=== PATIENT | female | born 1950 | race Caucasian/White ===

== ENCOUNTER 2019-01-31 19:23 | Emergency (ER) | payer MEDICARE, OTHER ==
[~2019-01-31] VITALS: Ht 165.1 cm; Wt 60.0 kg
[2019-01-31] MEDS ORDERED: ATOR1TAB21 PO (19:36)
[2019-01-31] MEDS ORDERED: SYNT100T PO (19:36)
[2019-01-31] MEDS ORDERED: LISI10TA4 PO (19:36)
[2019-01-31] MEDS ORDERED: CIPR500S PO (19:36)
[2019-01-31] MEDS ORDERED: MECL12.575 PO (19:36)
[2019-01-31] MEDS ORDERED: CIPRODEX OTIC (19:36)
[2019-01-31 21:56] LABS: BASO # 0.1 10^3/uL (0.0-0.2); BASO % 0.4 % (0.0-1.0); EOS # 0.1 10^3/uL (0.0-0.50); EOS % 0.8 % (0.0-3.0); HEMOGLOBIN 14.2 g/dl (12.0-15.5); LYMPH # 1.9 10^3/uL (1.5-4.5); LYMPH % 13.4 % (24.0-44.0); MEAN CORPUSCULAR HEMOGLOBIN 33.1 pg (27.0-33.0); MEAN CORPUSCULAR HGB CONC 36.4 g/dl (32.0-36.5); MEAN CORPUSCULAR VOLUME 90.9 fl (80.0-96.0); MONO # 1.1 10^3/uL (0.0-0.8); MONO % 7.5 % (0.0-5.0); NEUTROPHILS # 11.2 10^3/uL (1.8-7.7); NEUTROPHILS % 77.2 % (36.0-66.0); PLATELET COUNT, AUTOMATED 374 10^3/uL (150-450); RED BLOOD COUNT 4.29 10^6/uL (4.00-5.40); WHITE BLOOD COUNT 14.5 10^3/uL (4.0-10.0)
[2019-01-31 22:21] LABS: CALCIUM LEVEL 9.2 MG/DL (8.8-10.2); CREATININE FOR GFR 1.06 MG/DL (0.55-1.30); GLOMERULAR FILTRATION RATE 54.6 (>39); POTASSIUM SERUM 3.9 MEQ/L (3.5-5.1)
[2019-01-31] MEDS ORDERED: ISOVUE-370 76% 100ML VIAL (Q9967) As Ordered ONE (22:45)
--- NOTE | 2019-01-31 23:29 | REPVR ---
EXAM: CT Maxillofacial With Contrast EXAM DATE/TIME: 01/31/2019 11:01 PM CLINICAL HISTORY: 69 years old, female; Other: Lt ear pain; Additional info: L ear pain/swelling R/O abscess/mastoiditis TECHNIQUE: Imaging protocol: Computed tomography images of the face with intravenous contrast. Coronal and sagittal reformatted images were created and reviewed. Radiation optimization: All CT scans at this facility use at least one of these dose optimization techniques: automated exposure control; mA and/or kV adjustment per patient size (includes targeted exams where dose is matched to clinical indication); or iterative reconstruction. Contrast material: ISOVUE 370; Contrast volume: 75 ml; Contrast route: IV; COMPARISON: No relevant prior studies available. FINDINGS: Orbits: No acute intraorbital abnormality. Globes are unremarkable. Mastoid air cells: Fluid with air fluid levels in some left mastoid air cells. Sinuses: Normal. No air-fluid levels. Bones/joints: Degenerative changes of the upper cervical spine. Soft tissues: Unremarkable. IMPRESSION: 1. Fluid in some left mastoid air cells, particularly toward the tip which may reflect mild left mastoiditis. 2. Otherwise negative CT facial bones. Electronically signed by: Shahzad Guzmán On 01/31/2019 23:29:36 PM
[2019-02-01] MEDS ORDERED: predniSONE 20 MG TAB PO ONE
[2019-02-01] MEDS ORDERED: PIPERACILLIN/TAZOBACTAM SOD 4.5 GM in D5W MINI-BAG PLUS 50 ML IV ONE ×2
[2019-02-01] MEDS ORDERED: PRED20TA PO (00:02)
[2019-02-01 01:08] VITALS: BP 140/74
[2019-02-16] MEDS ORDERED: PREG100CA PO ×2 (10:38→10:51)
[2019-02-17] MEDS ORDERED: LYRI75CA PO ×2 (07:37→07:39)
== END 2019-02-01 01:11 | disposition home or self-care (01) ==
LOC: M ED 19:23
DX: H60.92 Unspecified otitis externa, left ear (principal); I10 Essential (primary) hypertension; E78.9 Disorder of lipoprotein metabolism, unspecified; E07.9 Disorder of thyroid, unspecified; Z88.2 Allergy status to sulfonamides; Z88.5 Allergy status to narcotic agent; Z79.899 Other long term (current) drug therapy
CPT/HCPCS: 70487; 80048; 85025; 87880; 96365; 99284; J2543; Q9967

== ENCOUNTER 2019-02-06 13:08 | Inpatient (IN) | payer MEDICARE, OTHER ==
[~2019-02-06] VITALS: Ht 165.1 cm; Wt 59.1 kg
[~2019-02-06 13:08] MED LIST: ATOR1TAB21 PO; CIPR500S PO; CIPRODEX OTIC; LISI10TA4 PO; MECL12.575 PO; PRED20TA PO; SYNT100T PO
[2019-02-06] MEDS ORDERED: DIAZ2TAB PO (13:17)
[2019-02-06 17:00] LABS: BASO # 0.1 10^3/uL (0.0-0.2); BASO % 0.7 % (0.0-1.0); EOS # 0.3 10^3/uL (0.0-0.50); EOS % 2.2 % (0.0-3.0); HEMATOCRIT 42.3 % (36.0-47.0); LYMPH # 1.7 10^3/uL (1.5-4.5); LYMPH % 14.6 % (24.0-44.0); MEAN CORPUSCULAR HEMOGLOBIN 32.1 pg (27.0-33.0); MEAN CORPUSCULAR HGB CONC 35.5 g/dl (32.0-36.5); MEAN CORPUSCULAR VOLUME 90.4 fl (80.0-96.0); MONO # 0.8 10^3/uL (0.0-0.8); MONO % 7.1 % (0.0-5.0); NEUTROPHILS # 8.7 10^3/uL (1.8-7.7); NEUTROPHILS % 74.5 % (36.0-66.0); PLATELET COUNT, AUTOMATED 402 10^3/uL (150-450); RED BLOOD COUNT 4.68 10^6/uL (4.00-5.40); WHITE BLOOD COUNT 11.6 10^3/uL (4.0-10.0)
[2019-02-06 17:23] LABS: ALBUMIN 3.8 GM/DL (3.2-5.2); BILIRUBIN,DIRECT 0.2 MG/DL (0.0-0.2); BILIRUBIN,TOTAL 0.7 MG/DL (0.2-1.0); CALCIUM LEVEL 9.6 MG/DL (8.8-10.2); CREATININE FOR GFR 1.07 MG/DL (0.55-1.30); INR 0.97; POTASSIUM SERUM 3.9 MEQ/L (3.5-5.1); PROTHROMBIN TIME 12.6 SECONDS (11.8-14.0); THYROID STIMULATING HORMONE 2.19 uIU/ML (0.358-3.740); TOTAL PROTEIN 7.5 GM/DL (6.4-8.2)
--- NOTE | 2019-02-06 18:22 | REPVR ---
EXAM: MR Head Without Contrast EXAM DATE/TIME: 02/06/2019 4:20 PM CLINICAL HISTORY: 69 years old, female; Weakness, facial; Additional info: L sided facial droop; L ear vesicles; Yaw griffin vs stroke TECHNIQUE: Imaging protocol: MR of the head without contrast. COMPARISON: No relevant prior studies available. FINDINGS: Brain: No acute infarct identified on the diffusion weighted imaging. No parenchymal hemorrhage. No evidence of brain parenchymal edema or intracranial mass effect. No significant white matter disease for the patient's age. Ventricles: Unremarkable. No ventriculomegaly. Bones/joints: Unremarkable. Soft tissues: Normal. Sinuses: Trace ethmoid mucosal thickening. No acute sinusitis. Mastoid air cells: Nonspecific bilateral mastoid effusions, moderate on the left and trace on the right. Internal auditory canals: Nonspecific left middle ear cavity fluid. Orbits: Unremarkable. IMPRESSION: 1. No evidence of acute infarct. 2. Nonspecific left middle ear cavity and mastoid fluid, may reflect eustachian tube dysfunction versus otitis media/mastoiditis. Electronically signed by: Dominga Parker On 02/06/2019 18:22:07 PM
[2019-02-06] MEDS ORDERED: diazePAM 2 MG TAB PO ONE (19:00)
[2019-02-06] MEDS ORDERED: NS 500 ML IV ONE (20:00)
[2019-02-06] MEDS ORDERED: IBUP80TA PO (20:56)
--- NOTE | 2019-02-06 22:49 | HPEPDOC ---
General Date of Admission 02/06/19 Date of Service: Feb 06, 2019 Chief Complaint The patient is a 69-year-old female admitted with a reason for visit of Cranial Pain. Source: Patient, Family History of Present Illness This is a 69 female with pmhx of htn and acquired hypothyroidism and a recent severe left ear infection treated at [facility] who presented today t o the ED for left sided facial droop since Wednesday. Patient said since the hospitalization 3 weeks ago, even though her ear infection got better, she felt like she has not gotten completely better because she always had throat pain and difficulty swallowing which seems to have gotten worse. She had a pimple/vesicle in her ear at the time of the infection which was culture for bacteria and herpes but came back negative. She saw a ENT specialist on Wednesday who examined her throat and ears and said she was ok and on gave her abx ear drops. She was given prednisone, but only took one dose because she said the ENT stopped it. She complain currently of left ear and face sharp pain 8/10, with difficulty swallowing, sore throat. She denied fever, nausea, chest pain opr sob. but complain of chills when the pain increases. ROS - all 14 point review of system is negative except for whats listed in HPI Pmhx acquired hypothyrodism htn ?hld - not on meds tick bite in the past, s/p abx treatment but was not dx with lyme disease surgical - c section x3 social - denied hx of smoking , drinking or drug use family hx - non-contributory allergies - see above meds - see below Physical exam Gen: NAD, healthy appearing , HEENT: normocephalic, atraumatic, dried blood in left ear, limited exam due to pain, no discharge from ears or nose, tender lymphadenopathy in the left sublingual region, no oropharyngeal erythema or exudate, no rash or vesicles in ear, face or oropharynx, neck is supple, CVS: RRR, normal S1n S2, no murmur, rubs, or gallops, no edema, no jvd Resp: LCTAB, no rhonchi, wheezes or crackles Abd : soft nontender, normal bowel sounds, no rebound tenderness or guarding MSK: no swelling, full range of motion, strength 5/5 Neuro: AOAx3, no confusion, facial nerve palsy obvious at rest - left sided ptosis, with tearing unable to completely close eye, left sided forehead - no movement , mouth asymmetry, tenderness on the left side of face Psych: normal mood and affect, good judgment Assessment and plan 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 started prednisone 60mg po daily - should be for 7 days - day 1 started valcyclovir 1000mg TID for 7 days,- day 1 prn pain meds eye patch for left eye gi ppx - protonix f/u esr, crp and lactic acid level f/u lyme w/u htn c/w ome meds HYpothyrodism - c/w home meds dvt ppx gi ppx full code, from home Home Medications Scheduled Levothyroxine Sodium (Synthroid) 100 Mcg Tablet, 100 MCG PO DAILY, (Reported) Lisinopril (Lisinopril) 10 Mg Tablet, 10 MG PO DAILY, (Reported) Scheduled PRN Diazepam (Diazepam) 2 Mg Tablet, 4 MG PO BID PRN for ANXIETY, (Reported) Ibuprofen (Ibuprofen) 800 Mg Tablet, 800 MG PO TID PRN for PAIN, (Reported) Allergies Coded Allergies: Sulfa (Sulfonamide Antibiotics) (Verified Allergy, Severe, 01/31/19) codeine (Verified Allergy, Severe, 01/31/19) A-FIB/CHADSVASC A-FIB History Current/History of A-Fib/PAF?: No Age/Risk Factor Scoring CHADSVASC: CHADSVASC Response (Comments) Value Age Risk Factor Age 65-74 years old 1 Gender Risk Factor Female 1 Hx of CHF No 0 Hx of HTN No 0 Hx of Stroke/TIA/or VTE No 0 Hx of Diabetes No 0 Hx of Vascular Disease No 0 Total 2 Treatment Treatment ordered: NONE Reason Anticoagulant not given: Not indicated/[id number] Vital Signs Vital Signs Date Time Temp Pulse Resp B/P (MAP) Pulse Ox O2 Delivery O2 Flow Rate FiO2 02/06/19 18:49 97.8 72 16 142/73 (96) 97 Room Air Laboratory Data Labs 24H Laboratory Tests 2 02/06/19 16:21: Immature Granulocyte % (Auto) 0.9, White Blood Count 11.6H, Red Blood Count 4.68, Hemoglobin 15.0, Hematocrit 42.3, Mean Corpuscular Volume 90.4, Mean Corpuscular Hemoglobin 32.1, Mean Corpuscular Hemoglobin Concent 35.5, Red Cell Distribution Width 12.6, Platelet Count 402, Neutrophils (%) (Auto) 74.5H, Lymphocytes (%) (Auto) 14.6L, Monocytes (%) (Auto) 7.1H, Eosinophils (%) (Auto) 2.2, Basophils (%) (Auto) 0.7, Neutrophils # (Auto) 8.7H, Lymphocytes # (Auto) 1.7, Monocytes # (Auto) 0.8, Eosinophils # (Auto) 0.3, Basophils # (Auto) 0.1, Nucleated Red Blood Cells % (auto) 0.0, Prothrombin Time 12.6, Prothromb Time International Ratio 0.97, Activated Partial Thromboplast Time 29.0, Anion Gap 7L, Glomerular Filtration Rate 54.0, Calcium Level 9.6, Aspartate Amino Transf (AST/SGOT) 17, Alanine Aminotransferase (ALT/SGPT) 17, Alkaline Phosphatase 74, Total Bilirubin 0.7, Direct Bilirubin 0.2, Total Protein 7.5, Albumin 3.8, Albumin/Globulin Ratio 1.03, Thyroid Stimulating Hormone (TSH) 2.190 CBC/BMP Laboratory Tests 02/06/19 16:21 Red Blood Count 4.68, Mean Corpuscular Volume 90.4, Mean Corpuscular Hemoglobin 32.1, Mean Corpuscular Hemoglobin Concent 35.5, Red Cell Distribution Width 12.6, Neutrophils (%) (Auto) 74.5 H, Lymphocytes (%) (Auto) 14.6 L, Monocytes (%) (Auto) 7.1 H, Eosinophils (%) (Auto) 2.2, Basophils (%) (Auto) 0.7, Neutrophils # (Auto) 8.7 H, Lymphocytes # (Auto) 1.7, Monocytes # (Auto) 0.8, Eosinophils # (Auto) 0.3, Basophils # (Auto) 0.1 Plan / VTE VTE Prophylaxis Ordered?: Yes SHONNA HERNANDEZ MD Feb 06, 2019 22:49
[2019-02-06] MEDS: valACYclovir HCL 500 MG TAB PO SCH (23:16)
[2019-02-06] MEDS: predniSONE 20 MG TAB PO SCH (23:16)
[2019-02-06] MEDS: KETOROLAC 30 MG/ML VIAL (J1885) IV PRN (23:21)
[2019-02-06] MEDS: ACETAMINOPHEN TAB 650MG DOSE (2X325MG) PO PRN (23:21)
[2019-02-06 23:58] LABS: C REACTIVE PROTEIN QUANTITATIV 0.35 MG/DL (0.00-0.30)
[2019-02-07 00:15] LABS: ERYTHROCYTE SEDIMENTATION RATE 16 mm/hr (0-30)
[2019-02-07] MEDS: PIPERACILLIN/TAZOBACTAM SOD 3.375 GM in D5W MINI-BAG PLUS 50 ML IV SCH ×4 (04:00→22:03)
[2019-02-07] MEDS: LEVOTHYROXINE 100MCG TABLET (0.1MG) PO SCH (05:06)
[2019-02-07] MEDS: KETOROLAC 30 MG/ML VIAL (J1885) IV PRN (05:36)
[2019-02-07] MEDS: HEPARIN SOD (PORCINE) 5000 UNITS/ML VIAL SC SCH ×3 (05:54→20:59)
[2019-02-07 06:40] LABS: HEMATOCRIT 38.7 % (36.0-47.0); HEMOGLOBIN 13.9 g/dl (12.0-15.5); MEAN CORPUSCULAR HEMOGLOBIN 32.2 pg (27.0-33.0); MEAN CORPUSCULAR HGB CONC 35.9 g/dl (32.0-36.5); MEAN CORPUSCULAR VOLUME 89.6 fl (80.0-96.0); PLATELET COUNT, AUTOMATED 336 10^3/uL (150-450); RED BLOOD COUNT 4.32 10^6/uL (4.00-5.40); WHITE BLOOD COUNT 8.5 10^3/uL (4.0-10.0)
[2019-02-07 07:05] LABS: BLOOD UREA NITROGEN 16 MG/DL (7-18); CARBON DIOXIDE LEVEL 27 MEQ/L (21-32); CHLORIDE LEVEL 97 MEQ/L (98-107); CREATININE FOR GFR 0.72 MG/DL (0.55-1.30); GLOMERULAR FILTRATION RATE > 60.0 (>39); GLUCOSE, FASTING 158 MG/DL (70-100); POTASSIUM SERUM 3.7 MEQ/L (3.5-5.1); SODIUM LEVEL 132 MEQ/L (136-145)
[2019-02-07] MEDS ORDERED: DOCUSATE SODIUM 100 MG CAP PO SCH (09:00)
[2019-02-07] MEDS: valACYclovir HCL 500 MG TAB PO SCH ×3 (09:14→20:59)
[2019-02-07] MEDS: LISINOPRIL 10 MG TAB PO SCH (09:14)
[2019-02-07] MEDS: PANTOPRAZOLE 40MG TAB (PROTONIX) PO SCH (09:14)
[2019-02-07] MEDS: predniSONE 20 MG TAB PO SCH (09:14)
[2019-02-07 13:02] VITALS: BP 112/62
[2019-02-07] MEDS: IBUPROFEN 800 MG TAB PO PRN ×2 (13:17→22:08)
[2019-02-07] MEDS: ACETAMINOPHEN TAB 650MG DOSE (2X325MG) PO PRN ×2 (14:10→20:58)
[2019-02-07 14:35] VITALS: BP 135/74
[2019-02-07] MEDS ORDERED: BISACODYL 10 MG SUPP PR ONE (15:45)
[2019-02-07] MEDS: KETOROLAC TROMETHAMINE 10 MG TAB PO PRN (18:00)
--- NOTE | 2019-02-07 19:54 | IPNPDOC ---
Text Note Date of Service The patient was seen on 02/07/19. NOTE Subjective: Patient endorses continued left sided facial discomfort, facial droop and ear pain. She denies any fevers/chills/headaches, vision changes, chest pain, palpitations, abd pain, vomiting, diarrhea, no focal weakness, no numbness/tingling. She notes constipation over the past 5 days. 10 Point ROS negative except listed here. Objective Vital signs: see below GEN: NAD, healthy female HEENT: left eye patch, left sided facial droop involving forehead, unable for raise eye brow. Left ear painful to touch, external canal erythematous, no vesicles noted, no rash or exudates. Cardio: S1/s2 present, RRR Lungs: CTA b/l, good air entry, no wheezing Abd: soft, nt, nd, bs present, no guarding Ext: no focal weakness, pulses palpable throughout MSK good strength throughout Neuro: A&Ox3, left sided facial palsy with ptosis, mouth and forehead involvement. Psych: Normal mood and affect MRI Brain 02/06: 1. No evidence of acute infarct. 2. Nonspecific left middle ear cavity and mastoid fluid, may reflect eustachian tube dysfunction versus otitis media/mastoiditis. 69 y/o F with HTN, acquired hypothyroidism with recent hospitalizations and antibiotic use for left ear infections at [facility] admitted with likely bells palsy- possibly bob cherry syndrome [place] Palsy r/o Bob Cherry syndrome -continue Prednisone 60mg daily -continue acyclovir 1g TID x7 days -pain medications -Called ENT and discussed with Dr. Patel who can see patient in his clinic to at 8 AM. [employer] can arrange transport. Patient has been following with Dr. Hyde as an outpatient. -left eye patch -supportive care Constipation -Bisacoydl suppository x1 then senna/colace HTN: Lisinopril 10 Hypothyroidism: synthroid 100 Dvt ppx PT eval Vital Signs Date Time Temp Pulse Resp B/P (MAP) Pulse Ox O2 Delivery O2 Flow Rate FiO2 02/07/19 14:35 97.2 85 20 135/74 (94) 95 02/07/19 13:02 97.5 84 16 112/62 (79) 94 02/07/19 09:31 124/60 (81) 02/07/19 09:31 124/60 (81) 02/07/19 09:30 85 98 02/07/19 09:30 85 18 98 Room Air 02/07/19 09:15 92 141/64 (89) 97 02/07/19 09:15 92 141/64 (89) 97 02/07/19 09:14 145/72 02/07/19 09:01 119/57 (77) 02/07/19 09:01 119/57 (77) 02/07/19 09:00 88 97 02/07/19 09:00 88 97 02/07/19 08:46 138/65 (89) 02/07/19 08:46 138/65 (89) 02/07/19 08:45 85 99 02/07/19 08:45 85 99 02/07/19 08:30 82 157/73 (101) 98 02/07/19 08:30 82 157/73 (101) 98 02/07/19 08:15 85 18 145/72 (96) 96 Room Air 02/07/19 08:00 76 18 133/69 (90) 95 Room Air 02/07/19 07:45 80 16 137/67 (90) 96 Room Air 02/07/19 07:30 81 16 135/76 (95) 96 Room Air 02/07/19 07:15 81 145/84 (104) 96 02/07/19 07:00 81 16 138/83 (101) 96 02/07/19 06:45 76 16 127/69 (88) 96 02/07/19 06:31 135/74 (94) 02/07/19 06:30 83 16 95 02/07/19 06:15 80 137/67 (90) 97 02/07/19 06:00 79 16 153/66 (95) 96 02/07/19 05:45 79 146/76 (99) 95 02/07/19 05:30 80 143/81 (101) 95 02/07/19 05:21 140/75 (96) 02/07/19 05:00 76 138/77 (97) 97 02/07/19 04:45 78 138/70 (92) 95 02/07/19 04:31 143/70 (94) 02/07/19 04:30 83 94 02/07/19 04:15 78 119/65 (83) 94 02/07/19 04:00 79 118/72 (87) 94 02/07/19 03:45 80 115/65 (82) 95 02/07/19 03:30 80 115/59 (77) 93 02/07/19 03:15 79 121/65 (83) 92 02/07/19 03:00 78 114/68 (83) 96 02/07/19 02:45 79 123/67 (85) 98 02/07/19 02:30 136/74 (94) 02/07/19 02:23 76 16 95 02/07/19 02:16 149/80 (103) 02/07/19 02:08 80 95 02/07/19 02:00 129/64 (85) 02/07/19 01:53 80 93 02/07/19 01:45 128/61 (83) 02/07/19 01:38 77 02/07/19 01:23 77 02/07/19 01:08 80 02/07/19 00:53 80 16 02/07/19 00:38 80 02/06/19 23:49 96.7 72 18 140/72 (94) 96 Room Air Intake & Output 02/07/19 06:00 Intake Total 500 ml Balance 500 ml Laboratory Tests 02/07/19 06:29: White Blood Count 8.5, Red Blood Count 4.32, Hemoglobin 13.9, Hematocrit 38.7, Mean Corpuscular Volume 89.6, Mean Corpuscular Hemoglobin 32.2, Mean Corpuscular Hemoglobin Concent 35.9, Red Cell Distribution Width 12.3, Platelet Count 336, Nucleated Red Blood Cells % (auto) 0.0, Blood Urea Nitrogen 16, Creatinine 0.72, Sodium Level 132L, Potassium Level 3.7, Chloride Level 97L, Carbon Dioxide Level 27, Calcium Level 9.0, Anion Gap 8, Glomerular Filtration Rate > 60.0, Fasting Glucose 158H, Lactic Acid Level 0.7, Magnesium Level 2.0, Procalcitonin 0.02, Lyme Disease IgG/IgM Antibodies [Pending] Current Medications Medications (Trade) Dose Ordered Sig/Satnam Route PRN Reason Start Time Stop Time Status Last Admin Dose Admin Acetaminophen (Tylenol Tab) 650 mg Q4H PRN PO PAIN OR FEVER 02/06/19 22:15 02/07/19 14:10 650 MG Docusate Sodium (Colace) 100 mg BID PO 02/07/19 09:00 02/07/19 09:14 100 MG Heparin Sodium (Porcine) (Heparin) 5,000 units Q8H SC 02/07/19 06:00 02/07/19 13:17 5,000 UNITS Ibuprofen (Advil) 800 mg TID PRN PO PAIN 02/07/19 00:45 02/07/19 13:17 800 MG Ketorolac Tromethamine (ToRADol) 10 mg Q6HP PRN PO PAIN 02/07/19 17:15 02/08/19 12:00 02/07/19 18:00 10 MG Levothyroxine Sodium (Synthroid) 100 mcg DAILY@0600 PO 02/07/19 06:00 02/07/19 05:06 100 MCG Lisinopril (Prinivil) 10 mg DAILY PO 02/07/19 09:00 02/07/19 09:14 10 MG Pantoprazole Sodium (Protonix) 40 mg DAILY PO 02/07/19 09:00 02/07/19 09:14 40 MG Piperacillin Sod/ Tazobactam Sod 3.375 gm/Dextrose 50 ml @ 50 mls/hr Q6H IV 02/07/19 04:00 02/07/19 15:18 50 MLS/HR Prednisone (Deltasone) 60 mg DAILY PO 02/06/19 22:30 02/07/19 09:14 60 MG Valacyclovir HCl (Valtrex) 1,000 mg TID PO 02/06/19 22:30 02/07/19 15:18 1,000 MG VS,Fishbone, I+O VS, Fishbone, I+O Laboratory Tests 02/07/19 06:29 Red Blood Count 4.32, Mean Corpuscular Volume 89.6, Mean Corpuscular Hemoglobin 32.2, Mean Corpuscular Hemoglobin Concent 35.9, Red Cell Distribution Width 12.3, Calcium Level 9.0 Vital Signs Date Time Temp Pulse Resp B/P (MAP) Pulse Ox O2 Delivery O2 Flow Rate FiO2 02/07/19 14:35 97.2 85 20 135/74 (94) 95 02/07/19 09:30 Room Air I&O- Last 24 Hours up to 6 AM 02/07/19 06:00 Intake Total 500 ml Balance 500 ml GE GOMEZ MD Feb 07, 2019 19:54
[2019-02-07] MEDS: SENNA 8.6 MG TAB (SENOKOT) PO SCH (20:57)
[2019-02-07] MEDS: DOCUSATE SODIUM 100 MG CAP PO SCH (20:57)
[2019-02-07 22:00] VITALS: BP 133/82
[2019-02-08] MEDS: KETOROLAC 30 MG/ML VIAL (J1885) IV PRN ×2 (01:30→19:51)
[2019-02-08] MEDS: PIPERACILLIN/TAZOBACTAM SOD 3.375 GM in D5W MINI-BAG PLUS 50 ML IV SCH ×4 (03:58→22:47)
[2019-02-08] MEDS: LEVOTHYROXINE 100MCG TABLET (0.1MG) PO SCH (05:53)
[2019-02-08] MEDS: HEPARIN SOD (PORCINE) 5000 UNITS/ML VIAL SC SCH ×3 (05:54→20:59)
[2019-02-08 06:00] VITALS: BP 128/74
[2019-02-08 06:17] LABS: HEMATOCRIT 34.3 % (36.0-47.0); HEMOGLOBIN 12.4 g/dl (12.0-15.5); MEAN CORPUSCULAR HEMOGLOBIN 32.2 pg (27.0-33.0); MEAN CORPUSCULAR HGB CONC 36.2 g/dl (32.0-36.5); MEAN CORPUSCULAR VOLUME 89.1 fl (80.0-96.0); PLATELET COUNT, AUTOMATED 333 10^3/uL (150-450); RED BLOOD COUNT 3.85 10^6/uL (4.00-5.40); WHITE BLOOD COUNT 17.8 10^3/uL (4.0-10.0)
[2019-02-08 06:27] LABS: BLOOD UREA NITROGEN 18 MG/DL (7-18); CALCIUM LEVEL 8.8 MG/DL (8.8-10.2); CARBON DIOXIDE LEVEL 28 MEQ/L (21-32); CHLORIDE LEVEL 94 MEQ/L (98-107); CREATININE FOR GFR 0.86 MG/DL (0.55-1.30); GLOMERULAR FILTRATION RATE > 60.0 (>39); GLUCOSE, FASTING 92 MG/DL (70-100); POTASSIUM SERUM 3.6 MEQ/L (3.5-5.1); SODIUM LEVEL 129 MEQ/L (136-145)
[2019-02-08] MEDS: predniSONE 20 MG TAB PO SCH (07:57)
[2019-02-08] MEDS: valACYclovir HCL 500 MG TAB PO SCH ×3 (07:58→21:00)
[2019-02-08] MEDS: PANTOPRAZOLE 40MG TAB (PROTONIX) PO SCH (07:58)
[2019-02-08] MEDS: DOCUSATE SODIUM 100 MG CAP PO SCH ×3 (07:58→21:01)
[2019-02-08] MEDS: LISINOPRIL 10 MG TAB PO SCH (07:58)
[2019-02-08] MEDS: KETOROLAC TROMETHAMINE 10 MG TAB PO PRN (08:00)
[2019-02-08] MEDS: POLYVINYL ALCOHOL OPHTH SOLN 15 ML(LIQUITEARS) OS PRN ×5 (11:24→22:47)
[2019-02-08] MEDS: ACETAMINOPHEN TAB 650MG DOSE (2X325MG) PO PRN ×3 (12:34→22:46)
[2019-02-08 14:00] VITALS: BP 135/78
[2019-02-08] MEDS: IBUPROFEN 800 MG TAB PO PRN (14:27)
--- NOTE | 2019-02-08 19:22 | IPNPDOC ---
Date Seen The patient was seen on 02/08/19. Progress Note Subjective: This is a 69 female admitted for left ear infection and rodriguez's palsy . Today patient is feelign somewhat better, but still complains of intermittent left facial//ear pain. Her throat pain is improved, but she can still only tolerate liquid diet . Objective Vital signs are stable labs Physical exam Gen: NAD, healthy appearing , HEENT: normocephalic, atraumatic, no discharge from ears or nose, tender lymphadenopathy in the left sublingual region, no oropharyngeal erythema or exudate, no rash or vesicles in ear, face or oropharynx, neck is supple, CVS: RRR, normal S1n S2, no murmur, rubs, or gallops, no edema, no jvd Resp: LCTAB, no rhonchi, wheezes or crackles Abd : soft nontender, normal bowel sounds, no rebound tenderness or guarding MSK: no swelling, full range of motion, strength 5/5 Neuro: AOAx3, no confusion, facial nerve palsy obvious at rest - left sided ptosis, with tearing unable to completely close eye, left sided forehead - no movement , mouth asymmetry, tenderness on the left side of face - all signs are slightly improved compared to sxs on admission Psych: normal mood and affect, good judgment Assessment and plan 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 c/w prednisone 60mg po daily - should be for 7 days - day 3 c/w valcyclovir 1000mg TID for 7 days,- day 3 prn pain meds eye patch for left eye seen by ENT today who examined her and rec to continue with current treatment gi ppx - protonix f/u esr, crp and lactic acid level f/u lyme w/u started gabapentin 200mg q8h for neuropathic pain artificial tears for dry left eye Otitis media//mastoiditis c/w zosyn day 3 for 7 days htn c/w ome meds HYpothyrodism - c/w home meds dvt ppx gi ppx full code, from home disposition- dc when pain is better controlled VS, I&O, 24H, Fishbone Vital Signs/I&O Vital Signs Date Time Temp Pulse Resp B/P (MAP) Pulse Ox O2 Delivery O2 Flow Rate FiO2 02/08/19 14:00 98.1 70 15 135/78 (97) 95 02/07/19 09:30 Room Air I&O- Last 24 Hours up to 6 AM 02/08/19 06:00 Intake Total 800 ml Output Total 850 ml Balance -50 ml Laboratory Data 24H LABS Laboratory Tests 2 02/08/19 05:17: Nucleated Red Blood Cells % (auto) 0.0, Anion Gap 7L, Glomerular Filtration Rate > 60.0, Blood Urea Nitrogen 18, Creatinine 0.86, Sodium Level 129L, Potassium Level 3.6, Chloride Level 94L, Carbon Dioxide Level 28, Calcium Level 8.8 CBC/BMP Laboratory Tests 02/08/19 05:17 Red Blood Count 3.85 L, Mean Corpuscular Volume 89.1, Mean Corpuscular Hemoglobin 32.2, Mean Corpuscular Hemoglobin Concent 36.2, Red Cell Distribution Width 12.1, Calcium Level 8.8 SHONNA HERNANDEZ MD Feb 08, 2019 19:22
[2019-02-08] MEDS: GABAPENTIN 100 MG CAP PO SCH (21:00)
[2019-02-08] MEDS: SENNA 8.6 MG TAB (SENOKOT) PO SCH (21:00)
[2019-02-08 22:00] VITALS: BP 130/76
[2019-02-09 00:07] LABS: Lyme Disease IgG/IgM Antibodie <0.91 ISR (0.00-0.90); Lyme Disease IgM Ab Quantitati <0.80 index (0.00-0.79)
[2019-02-09] MEDS: ACETAMINOPHEN TAB 650MG DOSE (2X325MG) PO PRN ×2 (04:16→14:42)
[2019-02-09] MEDS: PIPERACILLIN/TAZOBACTAM SOD 3.375 GM in D5W MINI-BAG PLUS 50 ML IV SCH ×4 (04:23→21:22)
[2019-02-09 05:38] LABS: HEMATOCRIT 33.7 % (36.0-47.0); MEAN CORPUSCULAR HGB CONC 35.6 g/dl (32.0-36.5); MEAN CORPUSCULAR VOLUME 89.9 fl (80.0-96.0); PLATELET COUNT, AUTOMATED 284 10^3/uL (150-450); RED BLOOD COUNT 3.75 10^6/uL (4.00-5.40); WHITE BLOOD COUNT 9.6 10^3/uL (4.0-10.0)
[2019-02-09 06:00] VITALS: BP 127/74
[2019-02-09 06:00] LABS: BLOOD UREA NITROGEN 14 MG/DL (7-18); C REACTIVE PROTEIN QUANTITATIV < 0.30 MG/DL (0.00-0.30); CALCIUM LEVEL 8.8 MG/DL (8.8-10.2); CARBON DIOXIDE LEVEL 29 MEQ/L (21-32); CHLORIDE LEVEL 98 MEQ/L (98-107); GLOMERULAR FILTRATION RATE > 60.0 (>39); GLUCOSE, FASTING 96 MG/DL (70-100); POTASSIUM SERUM 3.5 MEQ/L (3.5-5.1); SODIUM LEVEL 134 MEQ/L (136-145)
[2019-02-09] MEDS: HEPARIN SOD (PORCINE) 5000 UNITS/ML VIAL SC SCH ×3 (06:20→21:23)
[2019-02-09] MEDS: LEVOTHYROXINE 100MCG TABLET (0.1MG) PO SCH (06:20)
[2019-02-09] MEDS: GABAPENTIN 100 MG CAP PO SCH (06:20)
[2019-02-09 09:46] LABS: ERYTHROCYTE SEDIMENTATION RATE 14 mm/hr (0-30)
[2019-02-09] MEDS: valACYclovir HCL 500 MG TAB PO SCH ×3 (10:02→21:22)
[2019-02-09] MEDS: predniSONE 20 MG TAB PO SCH (10:03)
[2019-02-09] MEDS: PANTOPRAZOLE 40MG TAB (PROTONIX) PO SCH (10:03)
[2019-02-09] MEDS: DOCUSATE SODIUM 100 MG CAP PO SCH ×3 (10:03→21:23)
[2019-02-09] MEDS: LISINOPRIL 10 MG TAB PO SCH (10:04)
[2019-02-09] MEDS: IBUPROFEN 800 MG TAB PO PRN ×2 (10:04→18:08)
[2019-02-09] MEDS: POLYVINYL ALCOHOL OPHTH SOLN 15 ML(LIQUITEARS) OS PRN ×2 (10:24→21:24)
[2019-02-09 14:00] VITALS: BP 148/86
[2019-02-09] MEDS: GABAPENTIN 400 MG CAP PO SCH ×2 (14:41→21:22)
[2019-02-09 20:00] VITALS: BP 119/78
[2019-02-09] MEDS: SENNA 8.6 MG TAB (SENOKOT) PO SCH (21:23)
[2019-02-10] MEDS: PIPERACILLIN/TAZOBACTAM SOD 3.375 GM in D5W MINI-BAG PLUS 50 ML IV SCH ×4 (03:31→21:31)
[2019-02-10] MEDS: IBUPROFEN 800 MG TAB PO PRN ×2 (03:32→12:24)
[2019-02-10] MEDS: POLYVINYL ALCOHOL OPHTH SOLN 15 ML(LIQUITEARS) OS PRN ×4 (03:32→21:40)
[2019-02-10] MEDS: GABAPENTIN 400 MG CAP PO SCH ×3 (05:52→21:31)
[2019-02-10] MEDS: LEVOTHYROXINE 100MCG TABLET (0.1MG) PO SCH (05:52)
[2019-02-10] MEDS: HEPARIN SOD (PORCINE) 5000 UNITS/ML VIAL SC SCH ×3 (05:53→21:30)
[2019-02-10 05:54] LABS: HEMATOCRIT 35.7 % (36.0-47.0); HEMOGLOBIN 12.6 g/dl (12.0-15.5); MEAN CORPUSCULAR HEMOGLOBIN 32.8 pg (27.0-33.0); MEAN CORPUSCULAR HGB CONC 35.3 g/dl (32.0-36.5); PLATELET COUNT, AUTOMATED 278 10^3/uL (150-450); RED BLOOD COUNT 3.84 10^6/uL (4.00-5.40); WHITE BLOOD COUNT 10.4 10^3/uL (4.0-10.0)
[2019-02-10 06:00] VITALS: BP 122/78
[2019-02-10 06:16] LABS: BLOOD UREA NITROGEN 17 MG/DL (7-18); CALCIUM LEVEL 9.4 MG/DL (8.8-10.2); CARBON DIOXIDE LEVEL 28 MEQ/L (21-32); CHLORIDE LEVEL 98 MEQ/L (98-107); CREATININE FOR GFR 0.74 MG/DL (0.55-1.30); GLOMERULAR FILTRATION RATE > 60.0 (>39); GLUCOSE, FASTING 82 MG/DL (70-100); POTASSIUM SERUM 3.6 MEQ/L (3.5-5.1); SODIUM LEVEL 133 MEQ/L (136-145)
[2019-02-10] MEDS: valACYclovir HCL 500 MG TAB PO SCH ×3 (09:35→21:31)
[2019-02-10] MEDS: PANTOPRAZOLE 40MG TAB (PROTONIX) PO SCH (09:35)
[2019-02-10] MEDS: predniSONE 20 MG TAB PO SCH (09:35)
[2019-02-10] MEDS: DOCUSATE SODIUM 100 MG CAP PO SCH ×3 (09:35→21:31)
[2019-02-10] MEDS: ACETAMINOPHEN TAB 650MG DOSE (2X325MG) PO PRN ×3 (09:37→21:34)
[2019-02-10] MEDS: LISINOPRIL 10 MG TAB PO SCH (09:39)
[2019-02-10] MEDS ORDERED: PILL CUTTER 1 EACH XX PRN (09:45)
[2019-02-10] MEDS: LIDOCAINE 5% OINT 30 GM TOP PRN ×2 (13:39→23:08)
[2019-02-10 14:00] VITALS: BP 120/65
[2019-02-10] MEDS: LIDOCAINE VISCOUS 2% SOLN 15ML UDC SS PRN (16:34)
--- NOTE | 2019-02-10 18:07 | IPNPDOC ---
Date Seen The patient was seen on 02/09/19. Progress Note Subjective: This is a 69 female admitted for left ear infection and rodriguez's palsy . Today patient is complaining of left sided burning and stabbing scalp and forehead pain improved with her warm hands on it . prn meds help a bit but not doesn't last long enough Objective Vital signs are stable labs reviewed Physical exam Gen: NAD, healthy appearing , hypopactive due to pain, always in the same position and doesn't move her head, said it hurts more with movement HEENT: normocephalic, atraumatic, no discharge from ears or nose, tender lymphadenopathy in the left sublingual region, no oropharyngeal erythema or exudate, no obvious rash on scalp or face CVS: RRR, normal S1n S2, no murmur, rubs, or gallops, no edema, no jvd Resp: LCTAB, no rhonchi, wheezes or crackles Abd : soft nontender, normal bowel sounds, no rebound tenderness or guarding MSK: no swelling, full range of motion, strength 5/5 Neuro: AOAx3, no confusion, facial nerve palsy -improving, swelling and erythema of the left side is also improving, wearing an eye patch on the left Psych: normal mood and affect, good judgment Assessment and plan 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 - improving c/w prednisone 60mg po daily - should be for 7 days - day 4 c/w valcyclovir 1000mg TID for 7 days,- day 4 prn pain meds eye patch for left eye s/p ENT- rec to continue with current treatment gi ppx - protonix lyme w/u negative inreased gabapentin to 400mg q8h for neuropathic pain artificial tears for dry left eye Otitis media//mastoiditis c/w zosyn day 4 for 7 days htn c/w home meds HYpothyrodism - c/w home meds dvt ppx gi ppx full code, from home disposition- dc when pain is better controlled VS, I&O, 24H, Fishbone Vital Signs/I&O Vital Signs Date Time Temp Pulse Resp B/P (MAP) Pulse Ox O2 Delivery O2 Flow Rate FiO2 02/09/19 20:00 97.5 72 18 119/78 (92) 96 02/07/19 09:30 Room Air I&O- Last 24 Hours up to 6 AM 02/09/19 05:59 Intake Total 1100 ml Output Total 250 ml Balance 850 ml Laboratory Data 24H LABS Laboratory Tests 2 02/09/19 05:20: Nucleated Red Blood Cells % (auto) 0.0, Erythrocyte Sedimentation Rate 14, Anion Gap 7L, Glomerular Filtration Rate > 60.0, Blood Urea Nitrogen 14, Creatinine 0.80, Sodium Level 134L, Potassium Level 3.5, Chloride Level 98, Carbon Dioxide Level 29, Calcium Level 8.8, C-Reactive Protein, Quantitative < 0.30, Procalcitonin 0.02 CBC/BMP Laboratory Tests 02/09/19 05:20 Red Blood Count 3.75 L, Mean Corpuscular Volume 89.9, Mean Corpuscular Hemoglobin 32.0, Mean Corpuscular Hemoglobin Concent 35.6, Red Cell Distribution Width 12.5, Calcium Level 8.8 SHONNA HERNANDEZ MD Feb 09, 2019 22:58
--- NOTE | 2019-02-10 18:14 | IPNPDOC ---
Date Seen The patient was seen on 02/10/19. Progress Note Subjective: This is a 69 female admitted for left ear infection and rodriguez's palsy . Patient continues to complain of is complaining of left sided burning and stabbing scalp and forehead pain improved with her warm hands on it. She also said today , her throat seems and left ear are also hurting. prn meds (tylenol and motrin) help a bit but not doesn't last long enough Objective Vital signs are stable labs reviewed Physical exam Gen: NAD, healthy appearing , hypopactive due to pain, always in the same position and doesn't move her head, said it hurts more with movement HEENT: normocephalic, atraumatic, no discharge from ears or nose, tender lymphadenopathy in the left sublingual region, no oropharyngeal erythema or exudate, no obvious rash on scalp or face CVS: RRR, normal S1n S2, no murmur, rubs, or gallops, no edema, no jvd Resp: LCTAB, no rhonchi, wheezes or crackles Abd : soft nontender, normal bowel sounds, no rebound tenderness or guarding MSK: no swelling, full range of motion, strength 5/5 Neuro: AOAx3, no confusion, facial nerve palsy -improving, swelling and erythema of the left side is also improving, wearing an eye patch on the left Psych: normal mood and affect, good judgment Assessment and plan 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 - improving c/w prednisone 60mg po daily - should be for 7 days - day 5 c/w valcyclovir 1000mg TID for 7 days,- day 5 started lidocaine ointment prn started lidocained swish and swallow prn - given that patient is on 2 lidocaine drugs, I lengthen the frequency of each recommended to prevent side effect//overdose prn pain meds eye patch for left eye s/p ENT- rec to continue with current treatment gi ppx - protonix lyme w/u negative inreased gabapentin to 400mg q8h for neuropathic pain artificial tears for dry left eye Otitis media//mastoiditis c/w zosyn day 5 for 7 days htn c/w home meds HYpothyrodism - c/w home meds dvt ppx gi ppx full code, from home disposition- dc when pain is better controlled VS, I&O, 24H, Ricardo Vital Signs/I&O Vital Signs Date Time Temp Pulse Resp B/P (MAP) Pulse Ox O2 Delivery O2 Flow Rate FiO2 02/10/19 06:00 97.6 75 18 122/78 (93) 98 02/07/19 09:30 Room Air I&O- Last 24 Hours up to 6 AM 02/10/19 05:59 Intake Total 1560 ml Output Total 2250 ml Balance -690 ml Laboratory Data 24H LABS Laboratory Tests 2 02/10/19 05:40: Nucleated Red Blood Cells % (auto) 0.0, Anion Gap 7L, Glomerular Filtration Rate > 60.0, Blood Urea Nitrogen 17, Creatinine 0.74, Sodium Level 133L, Potassium Level 3.6, Chloride Level 98, Carbon Dioxide Level 28, Calcium Level 9.4, Magnesium Level 2.0 CBC/BMP Laboratory Tests 02/10/19 05:40 Red Blood Count 3.84 L, Mean Corpuscular Volume 93.0, Mean Corpuscular Hemoglobin 32.8, Mean Corpuscular Hemoglobin Concent 35.3, Red Cell Distribution Width 12.6, Calcium Level 9.4 SHONNA HERNANDEZ MD Feb 10, 2019 07:48
[2019-02-10] MEDS: SENNA 8.6 MG TAB (SENOKOT) PO SCH (21:31)
[2019-02-10 22:00] VITALS: BP 140/82
[2019-02-11] MEDS: ACETAMINOPHEN TAB 650MG DOSE (2X325MG) PO PRN ×4 (03:51→19:41)
[2019-02-11] MEDS: PIPERACILLIN/TAZOBACTAM SOD 3.375 GM in D5W MINI-BAG PLUS 50 ML IV SCH ×4 (03:51→21:30)
[2019-02-11] MEDS: POLYVINYL ALCOHOL OPHTH SOLN 15 ML(LIQUITEARS) OS PRN ×2 (03:51→19:43)
[2019-02-11] MEDS: LIDOCAINE VISCOUS 2% SOLN 15ML UDC SS PRN ×2 (04:18→16:07)
[2019-02-11 06:00] VITALS: BP 148/91
[2019-02-11] MEDS: GABAPENTIN 400 MG CAP PO SCH ×3 (06:11→20:28)
[2019-02-11] MEDS: LEVOTHYROXINE 100MCG TABLET (0.1MG) PO SCH (06:11)
[2019-02-11] MEDS: HEPARIN SOD (PORCINE) 5000 UNITS/ML VIAL SC SCH ×3 (06:11→21:29)
[2019-02-11 06:50] LABS: HEMATOCRIT 38.7 % (36.0-47.0); HEMOGLOBIN 13.5 g/dl (12.0-15.5); MEAN CORPUSCULAR HEMOGLOBIN 32.5 pg (27.0-33.0); MEAN CORPUSCULAR HGB CONC 34.9 g/dl (32.0-36.5); PLATELET COUNT, AUTOMATED 255 10^3/uL (150-450); RED BLOOD COUNT 4.16 10^6/uL (4.00-5.40)
[2019-02-11 07:11] LABS: BLOOD UREA NITROGEN 12 MG/DL (7-18); CALCIUM LEVEL 8.9 MG/DL (8.8-10.2); CARBON DIOXIDE LEVEL 27 MEQ/L (21-32); CHLORIDE LEVEL 99 MEQ/L (98-107); CREATININE FOR GFR 0.72 MG/DL (0.55-1.30); GLOMERULAR FILTRATION RATE > 60.0 (>39); GLUCOSE, FASTING 74 MG/DL (70-100); POTASSIUM SERUM 3.8 MEQ/L (3.5-5.1); SODIUM LEVEL 133 MEQ/L (136-145)
[2019-02-11] MEDS: predniSONE 20 MG TAB PO SCH (08:01)
[2019-02-11] MEDS: LISINOPRIL 10 MG TAB PO SCH (08:01)
[2019-02-11] MEDS: valACYclovir HCL 500 MG TAB PO SCH ×3 (08:01→20:28)
[2019-02-11] MEDS: PANTOPRAZOLE 40MG TAB (PROTONIX) PO SCH (08:01)
[2019-02-11] MEDS: DOCUSATE SODIUM 100 MG CAP PO SCH ×3 (08:01→20:28)
[2019-02-11] MEDS: LIDOCAINE 5% OINT 30 GM TOP PRN (08:02)
[2019-02-11] MEDS: KETOROLAC 30 MG/ML VIAL (J1885) IV PRN (10:14)
--- NOTE | 2019-02-11 12:14 | IPNPDOC ---
Date Seen The patient was seen on 02/11/19. Progress Note SUBJECTIVE: still with significant pain OBJECTIVE PHYSICAL EXAMINATION: VITAL SIGNS: Please see below. 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 - improving c/w prednisone 60mg po daily - should be for 7 days - day 6 c/w valcyclovir 1000mg TID for 7 days,- day 6 lidocaine ointment prn lidocained swish and swallow prn - given that patient is on 2 lidocaine drug add amitryptyline for nerve pain prn pain med- ibuprofen, toradol eye patch for left eye s/p ENT- rec to continue with current treatment gi ppx - protonix lyme w/u negative gabapentin 400mg q8h for neuropathic pain artificial tears for dry left eye Otitis media//mastoiditis c/w zosyn day 6 for 7 days htn c/w home meds HYpothyrodism - c/w home meds dvt ppx gi ppx full code, from home disposition- dc when pain is better controlled VS, I&O, 24H, Fishbone Vital Signs/I&O Vital Signs Date Time Temp Pulse Resp B/P (MAP) Pulse Ox O2 Delivery O2 Flow Rate FiO2 02/11/19 08:01 154/92 02/11/19 06:00 97.8 76 17 97 02/07/19 09:30 Room Air I&O- Last 24 Hours up to 6 AM 02/11/19 06:00 Intake Total 2365 ml Output Total 3400 ml Balance -1035 ml Laboratory Data 24H LABS Laboratory Tests 2 02/11/19 05:37: Nucleated Red Blood Cells % (auto) 0.0, Anion Gap 7L, Glomerular Filtration Rate > 60.0, Blood Urea Nitrogen 12, Creatinine 0.72, Sodium Level 133L, Potassium Level 3.8, Chloride Level 99, Carbon Dioxide Level 27, Calcium Level 8.9 CBC/BMP Laboratory Tests 02/11/19 05:37 Red Blood Count 4.16, Mean Corpuscular Volume 93.0, Mean Corpuscular Hemoglobin 32.5, Mean Corpuscular Hemoglobin Concent 34.9, Red Cell Distribution Width 12.9, Calcium Level 8.9 YULIANA AZEVEDO MD Feb 11, 2019 12:14
[2019-02-11 14:00] VITALS: BP 137/82
[2019-02-11] MEDS: IBUPROFEN 800 MG TAB PO PRN (15:54)
[2019-02-11] MEDS: SENNA 8.6 MG TAB (SENOKOT) PO SCH (20:28)
[2019-02-11] MEDS: AMITRIPTYLINE 25 MG TAB PO SCH (20:28)
[2019-02-11 22:00] VITALS: BP 134/81
[2019-02-12] MEDS: PIPERACILLIN/TAZOBACTAM SOD 3.375 GM in D5W MINI-BAG PLUS 50 ML IV SCH ×2 (04:16→10:29)
[2019-02-12] MEDS: POLYVINYL ALCOHOL OPHTH SOLN 15 ML(LIQUITEARS) OS PRN ×5 (04:21→21:32)
[2019-02-12] MEDS: IBUPROFEN 800 MG TAB PO PRN ×2 (04:21→13:39)
[2019-02-12] MEDS: GABAPENTIN 400 MG CAP PO SCH ×3 (05:47→21:31)
[2019-02-12] MEDS: HEPARIN SOD (PORCINE) 5000 UNITS/ML VIAL SC SCH ×3 (05:47→21:31)
[2019-02-12] MEDS: LEVOTHYROXINE 100MCG TABLET (0.1MG) PO SCH (05:47)
[2019-02-12 06:00] VITALS: BP 130/79
[2019-02-12 06:03] LABS: HEMATOCRIT 35.9 % (36.0-47.0); HEMOGLOBIN 12.6 g/dl (12.0-15.5); MEAN CORPUSCULAR HGB CONC 35.1 g/dl (32.0-36.5); MEAN CORPUSCULAR VOLUME 91.1 fl (80.0-96.0); PLATELET COUNT, AUTOMATED 285 10^3/uL (150-450); RED BLOOD COUNT 3.94 10^6/uL (4.00-5.40); WHITE BLOOD COUNT 11.3 10^3/uL (4.0-10.0)
[2019-02-12 06:17] LABS: BLOOD UREA NITROGEN 14 MG/DL (7-18); CALCIUM LEVEL 8.4 MG/DL (8.8-10.2); CARBON DIOXIDE LEVEL 28 MEQ/L (21-32); CHLORIDE LEVEL 100 MEQ/L (98-107); CREATININE FOR GFR 0.77 MG/DL (0.55-1.30); GLOMERULAR FILTRATION RATE > 60.0 (>39); GLUCOSE, FASTING 91 MG/DL (70-100); POTASSIUM SERUM 3.5 MEQ/L (3.5-5.1); SODIUM LEVEL 135 MEQ/L (136-145)
[2019-02-12] MEDS: ACETAMINOPHEN TAB 650MG DOSE (2X325MG) PO PRN ×4 (06:39→21:32)
[2019-02-12] MEDS: LIDOCAINE VISCOUS 2% SOLN 15ML UDC SS PRN ×2 (06:39→11:44)
[2019-02-12] MEDS: predniSONE 20 MG TAB PO SCH (08:43)
[2019-02-12] MEDS: DOCUSATE SODIUM 100 MG CAP PO SCH ×3 (08:43→21:31)
[2019-02-12] MEDS: LISINOPRIL 10 MG TAB PO SCH (08:43)
[2019-02-12] MEDS: PANTOPRAZOLE 40MG TAB (PROTONIX) PO SCH (08:43)
[2019-02-12] MEDS: valACYclovir HCL 500 MG TAB PO SCH ×3 (08:43→21:31)
[2019-02-12] MEDS: LIDOCAINE 5% OINT 30 GM TOP PRN (15:11)
--- NOTE | 2019-02-12 17:01 | IPNPDOC ---
Date Seen The patient was seen on 02/12/19. Progress Note SUBJECTIVE: reports improved facial droop and neuropathic pain SUBJECTIVE: still with significant pain OBJECTIVE PHYSICAL EXAMINATION: VITAL SIGNS: Please see below. 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 - improving c/w prednisone 60mg po daily - should be for 7 days - day 7 c/w valcyclovir 1000mg TID for 7 days,- day 7 lidocaine ointment prn lidocained swish and swallow prn - given that patient is on 2 lidocaine drug add amitryptyline for nerve pain prn pain med- ibuprofen, toradol eye patch for left eye s/p ENT- rec to continue with current treatment gi ppx - protonix lyme w/u negative gabapentin 400mg q8h for neuropathic pain artificial tears for dry left eye plan for dc tomorrow outpt fu w neuro and ENT Otitis media//mastoiditis sp zosyn x 7 days; discontinue today htn c/w home meds HYpothyrodism - c/w home meds dvt ppx gi ppx full code, from home VS, I&O, 24H, Fishbone Vital Signs/I&O Vital Signs Date Time Temp Pulse Resp B/P (MAP) Pulse Ox O2 Delivery O2 Flow Rate FiO2 02/12/19 08:43 130/79 02/12/19 06:00 97.9 80 16 94 02/07/19 09:30 Room Air I&O- Last 24 Hours up to 6 AM 02/12/19 06:00 Intake Total 1710 ml Output Total 2300 ml Balance -590 ml Laboratory Data 24H LABS Laboratory Tests 2 02/12/19 05:31: Nucleated Red Blood Cells % (auto) 0.0, Anion Gap 7L, Glomerular Filtration Rate > 60.0, Blood Urea Nitrogen 14, Creatinine 0.77, Sodium Level 135L, Potassium Level 3.5, Chloride Level 100, Carbon Dioxide Level 28, Calcium Level 8.4L CBC/BMP Laboratory Tests 02/12/19 05:31 Red Blood Count 3.94 L, Mean Corpuscular Volume 91.1, Mean Corpuscular Hemoglobin 32.0, Mean Corpuscular Hemoglobin Concent 35.1, Red Cell Distribution Width 12.9, Calcium Level 8.4 L YULIANA AZEVEDO MD Feb 12, 2019 17:01
[2019-02-12] MEDS: AMITRIPTYLINE 25 MG TAB PO SCH (21:31)
[2019-02-12] MEDS: SENNA 8.6 MG TAB (SENOKOT) PO SCH (21:31)
[2019-02-12 22:00] VITALS: BP 154/89
[2019-02-13] MEDS: POLYVINYL ALCOHOL OPHTH SOLN 15 ML(LIQUITEARS) OS PRN ×5 (00:02→21:37)
[2019-02-13] MEDS: IBUPROFEN 800 MG TAB PO PRN ×3 (00:03→15:57)
[2019-02-13] MEDS: LIDOCAINE 5% OINT 30 GM TOP PRN (00:03)
[2019-02-13] MEDS ORDERED: FLEET ENEMA PR PRN (01:30)
[2019-02-13 05:32] LABS: HEMATOCRIT 37.6 % (36.0-47.0); HEMOGLOBIN 13.5 g/dl (12.0-15.5); MEAN CORPUSCULAR HEMOGLOBIN 33.4 pg (27.0-33.0); MEAN CORPUSCULAR HGB CONC 35.9 g/dl (32.0-36.5); MEAN CORPUSCULAR VOLUME 93.1 fl (80.0-96.0); PLATELET COUNT, AUTOMATED 278 10^3/uL (150-450); RED BLOOD COUNT 4.04 10^6/uL (4.00-5.40); WHITE BLOOD COUNT 12.9 10^3/uL (4.0-10.0)
[2019-02-13 05:57] LABS: BLOOD UREA NITROGEN 11 MG/DL (7-18); CALCIUM LEVEL 8.7 MG/DL (8.8-10.2); CARBON DIOXIDE LEVEL 28 MEQ/L (21-32); CHLORIDE LEVEL 101 MEQ/L (98-107); CREATININE FOR GFR 0.66 MG/DL (0.55-1.30); GLOMERULAR FILTRATION RATE > 60.0 (>39); GLUCOSE, FASTING 78 MG/DL (70-100); POTASSIUM SERUM 3.7 MEQ/L (3.5-5.1); SODIUM LEVEL 135 MEQ/L (136-145)
[2019-02-13 06:00] VITALS: BP 146/91
[2019-02-13] MEDS: LEVOTHYROXINE 100MCG TABLET (0.1MG) PO SCH (06:13)
[2019-02-13] MEDS: BISACODYL 10 MG SUPP PR PRN (06:13)
[2019-02-13] MEDS: GABAPENTIN 400 MG CAP PO SCH ×3 (06:13→21:33)
[2019-02-13] MEDS: HEPARIN SOD (PORCINE) 5000 UNITS/ML VIAL SC SCH ×3 (06:13→21:33)
[2019-02-13] MEDS: ACETAMINOPHEN TAB 650MG DOSE (2X325MG) PO PRN ×3 (06:13→21:35)
[2019-02-13] MEDS: LIDOCAINE VISCOUS 2% SOLN 15ML UDC SS PRN (06:19)
[2019-02-13] MEDS: valACYclovir HCL 500 MG TAB PO SCH ×2 (09:51→15:56)
[2019-02-13] MEDS: predniSONE 20 MG TAB PO SCH (09:51)
[2019-02-13] MEDS: PANTOPRAZOLE 40MG TAB (PROTONIX) PO SCH (09:52)
[2019-02-13] MEDS: LISINOPRIL 10 MG TAB PO SCH (09:52)
[2019-02-13] MEDS: DOCUSATE SODIUM 100 MG CAP PO SCH ×3 (09:52→21:33)
[2019-02-13] MEDS ORDERED: HYDROMORPHONE HCL 0.5 MG/ 0.5 ML SYRINGE (J1170 PER 1) IV ONE (11:45)
[2019-02-13 14:00] VITALS: BP 141/84
--- NOTE | 2019-02-13 17:31 | IPNPDOC ---
Date Seen The patient was seen on 02/13/19. Progress Note SUBJECTIVE: complained of positional CP earlier, now resolved not happy with pain control OBJECTIVE PHYSICAL EXAMINATION: VITAL SIGNS: Please see below. 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 Further pain control can be managed as an outaptient- pt requesting different MD-- pt is being reassigned tomorrow to new MD-- consider making her ALC as continued hospitalization not indicated in my opinion eye patch for left eye s/p ENT- rec to continue with current treatment gi ppx - protonix lyme w/u negative artificial tears for dry left eye plan for dc mata outpt fu w neuro and ENT Otitis media//mastoiditis sp zosyn x 7 days htn c/w home meds HYpothyrodism - c/w home meds CP today- trop neg, EKG unremarkable, likely positional/MSK dvt ppx gi ppx VS, I&O, 24H, Fishbone Vital Signs/I&O Vital Signs Date Time Temp Pulse Resp B/P (MAP) Pulse Ox O2 Delivery O2 Flow Rate FiO2 02/13/19 14:00 98.0 79 16 141/84 (103) 97 02/07/19 09:30 Room Air I&O- Last 24 Hours up to 6 AM 02/13/19 06:00 Intake Total 1050 ml Output Total 3500 ml Balance -2450 ml Laboratory Data 24H LABS Laboratory Tests 2 02/13/19 05:08: Nucleated Red Blood Cells % (auto) 0.0, Anion Gap 6L, Glomerular Filtration Rate > 60.0, Blood Urea Nitrogen 11, Creatinine 0.66, Sodium Level 135L, Potassium Level 3.7, Chloride Level 101, Carbon Dioxide Level 28, Calcium Level 8.7L 02/13/19 11:03: Troponin I < 0.02 CBC/BMP Laboratory Tests 02/13/19 05:08 Red Blood Count 4.04, Mean Corpuscular Volume 93.1, Mean Corpuscular Hemoglobin 33.4 H, Mean Corpuscular Hemoglobin Concent 35.9, Red Cell Distribution Width 13.2, Calcium Level 8.7 L YULIANA AZEVEDO MD Feb 13, 2019 17:31
--- NOTE | 2019-02-13 19:21 | CR ---
DATE OF CONSULTATION: 02/13/2019 REASON FOR CONSULTATION: Pain consult for left-sided facial pain secondary to Rodriguez's palsy. HISTORY OF PRESENT ILLNESS: A 69-year-old female with complaints of left-sided facial pain. She was recently treated for an ear infection at [facility] and seen by ears, nose and throat (ENT) on Wednesday and subsequently started her on antibiotic eardrops. She developed left-sided facial droop on Wednesday and presented to the emergency room (ER) after. PAST MEDICAL HISTORY: Significant for hypothyroidism, hypertension, and hyperlipidemia. PAST SURGICAL HISTORY: Significant for a (C) section times three. ALLERGIES: Include SULFA and CODEINE. REVIEW OF SYSTEMS: Left facial pain that radiates down, facial swelling, and throat and ear pain. PHYSICAL EXAMINATION: Alert and oriented with a pleasant affect. Lungs sound clear. Heart rate is regular. No erythema, ecchymosis, increased warmth, and/or skin eruptions noted along the left scalp or face. Facial swelling and tenderness present. PLAN: Consulted with KLAUS Frost and given presenting symptoms and resulted physical examination recommended discontinuation of gabapentin and amitriptyline, starting Topamax 25 mg daily, titrating up weekly as needed, and oxycodone 5 mg three times a day as needed for pain. Thank you for allowing us to participate in the care of your patient. Should you have any questions or concerns, please feel free to call us at the pain center.
--- NOTE | 2019-02-13 21:03 | ECGEPIP ---
[facility] Test Date: 2019-02-13 Pat Name: MARQUISE SARABIA Department: Room: [place] [address] Gender: Female Side Puller: MALDONADO : 1950 Requested By: YULIANA AZEVEDO Order Number: [id number] Reading MD: Cr Zazueta Measurements Intervals [place] Rate: 69 P: 59 AL: 142 QRS: -30 QRSD: 82 T: 23 QT: 373 QTc: 400 Interpretive Statements Normal sinus rhythm Left atrial enlargement Left axis deviation Nonspecific ST-T wave abnormalities Consider left ventricular hypertrophy Comparison tracing not on file Electronically Signed on 02-13-2019 21:03:39 EDT by Cr Zazueta
[2019-02-13] MEDS: AMITRIPTYLINE 25 MG TAB PO SCH (21:33)
[2019-02-13] MEDS: SENNA 8.6 MG TAB (SENOKOT) PO SCH (21:33)
[2019-02-13 22:00] VITALS: BP 119/74
[2019-02-14] MEDS: GABAPENTIN 400 MG CAP PO SCH (05:58)
[2019-02-14] MEDS: HEPARIN SOD (PORCINE) 5000 UNITS/ML VIAL SC SCH ×3 (05:58→21:54)
[2019-02-14] MEDS: POLYVINYL ALCOHOL OPHTH SOLN 15 ML(LIQUITEARS) OS PRN ×5 (05:58→21:54)
[2019-02-14] MEDS: LEVOTHYROXINE 100MCG TABLET (0.1MG) PO SCH (05:58)
[2019-02-14] MEDS: LIDOCAINE VISCOUS 2% SOLN 15ML UDC SS PRN ×2 (05:58→15:16)
[2019-02-14] MEDS: IBUPROFEN 800 MG TAB PO PRN (05:59)
[2019-02-14 06:00] VITALS: BP 155/89
[2019-02-14 06:07] LABS: HEMOGLOBIN 13.6 g/dl (12.0-15.5); MEAN CORPUSCULAR HEMOGLOBIN 33.1 pg (27.0-33.0); MEAN CORPUSCULAR HGB CONC 34.9 g/dl (32.0-36.5); MEAN CORPUSCULAR VOLUME 94.9 fl (80.0-96.0); PLATELET COUNT, AUTOMATED 273 10^3/uL (150-450); RED BLOOD COUNT 4.11 10^6/uL (4.00-5.40); WHITE BLOOD COUNT 15.4 10^3/uL (4.0-10.0)
[2019-02-14 06:28] LABS: BLOOD UREA NITROGEN 14 MG/DL (7-18); CALCIUM LEVEL 9.1 MG/DL (8.8-10.2); CARBON DIOXIDE LEVEL 27 MEQ/L (21-32); CHLORIDE LEVEL 101 MEQ/L (98-107); CREATININE FOR GFR 0.59 MG/DL (0.55-1.30); GLOMERULAR FILTRATION RATE > 60.0 (>39); GLUCOSE, FASTING 79 MG/DL (70-100); POTASSIUM SERUM 4.1 MEQ/L (3.5-5.1); SODIUM LEVEL 133 MEQ/L (136-145)
[2019-02-14 07:51] VITALS: BP 123/83
[2019-02-14] MEDS: ACETAMINOPHEN TAB 650MG DOSE (2X325MG) PO PRN ×2 (08:02→12:52)
[2019-02-14] MEDS: DOCUSATE SODIUM 100 MG CAP PO SCH ×3 (08:02→21:51)
[2019-02-14] MEDS: PANTOPRAZOLE 40MG TAB (PROTONIX) PO SCH (08:02)
[2019-02-14] MEDS: LISINOPRIL 10 MG TAB PO SCH (08:03)
[2019-02-14] MEDS: BISACODYL 10 MG SUPP PR PRN (08:57)
[2019-02-14] MEDS ORDERED: oxyCODONE 5MG TAB PO PRN (11:00)
[2019-02-14] MEDS ORDERED: TOPIRAMATE (TopAMAX) 25 MG TAB PO ONE (11:15)
[2019-02-14] MEDS ORDERED: oxyCODONE 5MG TAB PO ONE (11:15)
[2019-02-14] MEDS ORDERED: KETOROLAC TROMETHAMINE 10 MG TAB PO PRN (13:00)
[2019-02-14] MEDS ORDERED: KETOROLAC TROMETHAMINE 10 MG TAB PO ONE (13:00)
--- NOTE | 2019-02-14 13:19 | IPN ---
DATE: 02/14/2019 Patient still complains of left sided ear pain and left facial pain described as neuropathic with sudden sharp electrical pains shooting across her face on the left side, this occurs without any warning, lasts for a few seconds and dissipates. She has been seen by ear, nose, and throat surgeon, given Ciprodex, completed a 7 day course of antibiotics and currently on Valtrex for Yaw Cherry, Ibuprofen without much relief. She was seen by pain management clinic recommended Topamax as well as discontinuation of gabapentin and amitriptyline and to start on oxycodone 5 mg three times a day as needed for pain and max 25 mg daily. Patient refuses to take codeine based medications due to prior adverse effects with significant nausea. No history of anterior edema from codeine. Patient states that the pain is worse when she moves her head and when she walks around she usually holds it without any relief with ibuprofen. Lidocaine solution per pain management this morning. No other medications are recommended as the patient has had no relief with no ibuprofen, gabapentin and amitriptyline, they recommended continuing the Topamax 25 mg to be titrated every 7 days and topical treatment with lidocaine. Due to worsening pain I have reconsulted ENT for further management. Patient is describing her pain as 8 out of 10 without any relief at the bedside. Temperature 98.8, pulse 69, respiratory 19, blood pressure 123/83, 96% on room air. Patient is awake, alert, oriented, able to provide a history. Her face has notable mild left facial droop and she is able to speak in full sentences. No dysarthria. Pupils are nonreactive. Extraocular muscles are intact. Neck is supple. Moist mucous membranes. Lungs are clear to auscultation. No wheezing or rales. Heart S1,S2, sinus rhythm. Abdomen is soft, nontender, nondistended. Extremities show no cyanosis, no clubbing, or any pitting edema. LABORATORY DATA: 02/14 - CBC metabolic panel has been reviewed notable for a white count of 15,000 with recent use of prednisone which has not been tapered. She completed 7 days of that as outpatient. Yesterday she received one dose of Dilaudid with some relief, but adamant about not using any further opioids. ASSESSMENT AND PLAN: This is a 69-year-old female treated at [facility] for otitis media with antibiotics, complains of sore throat pain and odynophagia seen by ENT with Ciprodex ear drops given and course of steroids. Current issues are as follows: Persistent left ear pain and Rodriguez's Palsy questionable Paulino Cherry completed 7 days of prednisone, currently on valacyclovir three times a day for 7 days. We will reconsult ear, nose and throat due to persistent pain of the left ear and prior history of left ear otitis media. Hypertension. Currently on lisinopril. Hypothyroidism. On Synthroid. MTDD
[2019-02-14 14:00] VITALS: BP 138/77
[2019-02-14] MEDS: LIDOCAINE 5% OINT 30 GM TOP SCH ×2 (16:00→21:00)
[2019-02-14] MEDS ORDERED: NS 1,000 ML IV SCH (18:00)
[2019-02-14] MEDS ORDERED: NALOXONE INJ 0.4 MG/1 ML VIAL (J2310) IV PRN (18:00)
[2019-02-14] MEDS ORDERED: oxyCODONE 10 MG CR TAB PO ONE (18:00)
[2019-02-14] MEDS ORDERED: MORPHINE 4 MG/ML 1ML VIAL/SYRINGE (J2270) IV PRN (18:00)
[2019-02-14] MEDS: NS 1,000 ML IV SCH (18:23)
[2019-02-14] MEDS: SENNA 8.6 MG TAB (SENOKOT) PO SCH (21:51)
[2019-02-14] MEDS: oxyCODONE 5MG TAB PO PRN (21:53)
[2019-02-14 22:00] VITALS: BP 137/80
[2019-02-15] MEDS: KETOROLAC 30 MG/ML VIAL (J1885) IV PRN ×3 (00:51→15:58)
[2019-02-15] MEDS: LEVOTHYROXINE 100MCG TABLET (0.1MG) PO SCH (05:46)
[2019-02-15] MEDS: oxyCODONE 5MG TAB PO PRN (05:47)
[2019-02-15] MEDS: HEPARIN SOD (PORCINE) 5000 UNITS/ML VIAL SC SCH ×3 (05:49→22:06)
[2019-02-15] MEDS: NS 1,000 ML IV SCH ×2 (05:58→22:03)
[2019-02-15] MEDS: POLYVINYL ALCOHOL OPHTH SOLN 15 ML(LIQUITEARS) OS PRN ×5 (05:59→22:07)
[2019-02-15 06:00] VITALS: BP 142/80
[2019-02-15] MEDS: LIDOCAINE VISCOUS 2% SOLN 15ML UDC SS PRN ×2 (06:22→16:47)
[2019-02-15] MEDS: LIDOCAINE 5% OINT 30 GM TOP SCH ×3 (09:00→21:00)
[2019-02-15] MEDS ORDERED: oxyCODONE 10 MG CR TAB PO SCH (09:00)
[2019-02-15] MEDS: PANTOPRAZOLE 40MG TAB (PROTONIX) PO SCH (09:09)
[2019-02-15] MEDS: TOPIRAMATE (TopAMAX) 25 MG TAB PO SCH (09:09)
[2019-02-15] MEDS: LISINOPRIL 10 MG TAB PO SCH (09:09)
[2019-02-15] MEDS: DOCUSATE SODIUM 100 MG CAP PO SCH ×3 (09:09→22:04)
[2019-02-15] MEDS ORDERED: MECLIZINE 25 MG TABLET PO ONE (11:00)
[2019-02-15] MEDS ORDERED: ONDANSETRON 4MG/2ML VIAL (J2405) IV ONE (11:00)
--- NOTE | 2019-02-15 11:42 | IPNPDOC ---
Text Note Date of Service The patient was seen on 02/15/19. NOTE Patient seen in clinic today. Readmitted for severe facial, head and ear pain again Exam Awakle alert and in some distress, photophobic The left ear is looking better the canal has some debris and the TM is well seen with no inflammatory findings seen she has marked trismus and trigger tenderness of left muscles of mastication Intra orally her exam shows ho medial shift of tonsil fossa and clear mucosa throughout. Neck has no masses Facial nerve is improved with eye closure now and frontalis movement Imp Though her Bob griffin and Facial N is improving, she still has a pain managment issue between the bite disorder and myofascial dysfunction and post herpetic neruralgia Rec Add a muscle relaxer to program like Dantrolene or Valium. Cut back on narcotics Try full strength Toradol Heating pad to left face if tolerated or ice if not Pain management consult Neurolgoy consult VS,Ricardo, I+O VS, Hanybone, I+O Vital Signs Date Time Temp Pulse Resp B/P (MAP) Pulse Ox O2 Delivery O2 Flow Rate FiO2 02/15/19 09:09 151/86 02/15/19 09:07 20 02/15/19 06:00 96.8 68 97 I&O- Last 24 Hours up to 6 AM 02/15/19 06:00 Intake Total 2097 ml Output Total 2650 ml Balance -553 ml PHILLY CORREA MD Feb 15, 2019 11:42
[2019-02-15] MEDS: ACETAMINOPHEN TAB 650MG DOSE (2X325MG) PO PRN (13:19)
[2019-02-15 14:00] VITALS: BP 160/89
[2019-02-15] MEDS ORDERED: diazePAM 2 MG TAB PO ONE (16:15)
[2019-02-15] MEDS ORDERED: MECLIZINE 25 MG TABLET PO PRN (17:00)
--- NOTE | 2019-02-15 20:24 | CR ---
DATE OF CONSULTATION: 02/15/2019 Received a call from Dr. Young regarding the patient. Patient continues to have pain despite previous recommendations for pain control. Recommendation at this time is the use of Lyrica 75 mg twice a day and the use of Lidoderm patches, cut to fit area of pain every 12 hours as needed. Any further questions, please contact me at the pain center. BONNY
[2019-02-15 22:00] VITALS: BP 149/81
[2019-02-15] MEDS: SENNA 8.6 MG TAB (SENOKOT) PO SCH (22:03)
[2019-02-15] MEDS: KETOROLAC 30 MG/ML VIAL (J1885) IV SCH (22:04)
[2019-02-15] MEDS: PREGABALIN 100 MG CAP (LYRICA) PO SCH (22:05)
[2019-02-16] MEDS ORDERED: diazePAM 2 MG TAB PO PRN
[2019-02-16] MEDS: ACETAMINOPHEN TAB 650MG DOSE (2X325MG) PO PRN ×2 (00:24→15:50)
[2019-02-16] MEDS: KETOROLAC 30 MG/ML VIAL (J1885) IV SCH ×2 (03:39→08:13)
[2019-02-16] MEDS: HEPARIN SOD (PORCINE) 5000 UNITS/ML VIAL SC SCH (05:59)
[2019-02-16] MEDS: LEVOTHYROXINE 100MCG TABLET (0.1MG) PO SCH (05:59)
[2019-02-16 06:00] VITALS: BP 146/81
[2019-02-16] MEDS: LIDOCAINE VISCOUS 2% SOLN 15ML UDC SS PRN ×2 (06:00→16:39)
[2019-02-16] MEDS: POLYVINYL ALCOHOL OPHTH SOLN 15 ML(LIQUITEARS) OS PRN ×2 (06:07→09:27)
[2019-02-16] MEDS: PREGABALIN 100 MG CAP (LYRICA) PO SCH (08:13)
[2019-02-16] MEDS: PANTOPRAZOLE 40MG TAB (PROTONIX) PO SCH (08:13)
[2019-02-16] MEDS: TOPIRAMATE (TopAMAX) 25 MG TAB PO SCH (08:13)
[2019-02-16] MEDS: DOCUSATE SODIUM 100 MG CAP PO SCH ×3 (08:14→22:58)
[2019-02-16] MEDS: LIDOCAINE 5% OINT 30 GM TOP SCH ×3 (09:00→21:00)
--- NOTE | 2019-02-16 09:42 | CR ---
DATE OF CONSULTATION: 02/15/2019 REFERRING PHYSICIAN: Dr. Cande Young REASON FOR CONSULTATION: Left-sided facial weakness and pain. HISTORY OF PRESENT ILLNESS: Cande Mccoy is a 69-year-old woman who developed severe left ear infection a month ago and was admitted at [facility] for 7-8 days. She was in the intensive care unit due to hyponatremia as well. She was on intravenous antibiotics at that time. She had swelling of her left side of face and pain in her throat as well. She felt throbbing pain at that time. She was noted to have a couple of blisters in her ear on the left side and culture was done at [facility] but it was unremarkable. She developed worsening of her left-sided facial pain 2 weeks ago. Became sharp, burning and shooting in character and reached up to 10/10 in intensity. She noted left-sided facial weakness on February 04, 2019. She thinks that she had blisters in her left ear at that time. She also started feeling dizzy. Her pain ranges between 5-10 in intensity. It spreads to the top of her head and left ear and she feels as if her head is splitting. She also felt throat pain and trouble swallowing at times. She denies any headaches, neck pain, back pain or seizures. The patient was treated with prednisone for seven days. It appears in electronic medical records that admitting physician put in a consult for Dr. Owen who has not been to [facility] for a few years. We would not contact him by phone, so Dr. Young asked me to see her today. The patient was seen by pain management. Gabapentin and amitriptyline were tried but were stopped due to ineffectiveness. She had nausea, vomiting and side effects with oxycodone. Topamax was started 25 mg by mouth daily today. She continues to have pain on the left side of her face. DIAGNOSTIC STUDIES: Her MRI scan of brain on February 06, 2019 showed infection in her left middle ear and left mastoid sinus. Her Lyme antibody, complete metabolic profile were unremarkable. WBCs were 15.4 and serum sodium was 133. PAST MEDICAL HISTORY: Hypothyroidism. Hypertension. History of tick bite and the patient was treated with antibiotics but Lyme disease testing was unremarkable in past. section. FAMILY HISTORY: Noncontributory. SOCIAL HISTORY: She denies smoking, alcohol or illicit drugs. HOME MEDICATIONS: - Valium 2 mg two tablets twice a day as needed - ibuprofen 800 mg by mouth three times a day as needed - levothyroxine 100 mcg by mouth daily - lisinopril 10 mg by mouth daily ALLERGIES: 1. SULFA. 2. CODEINE. REVIEW OF SYSTEMS: All systems were reviewed and found to be noncontributory except as mentioned in history of present illness. PHYSICAL EXAMINATION: Temperature 98.1, pulse 75, respiratory 18, blood pressure 160/89. Heart regular rate and rhythm. Lungs clear to auscultation. Abdomen soft, nontender, nondistended. No pedal edema. No musculoskeletal abnormalities. No rash. No signs of meningeal irritation. The patient is awake, alert, oriented to place, person and time. Normal speech comprehension and repetition. Extraocular muscles are intact. She has left-sided lower motor neuron type facial weakness, which is getting better. She is able to blink her left eye. She is able to wrinkle her left side of forehead. She still has asymmetric smile. Tongue and uvula are midline. She has normal movement of her tongue and uvula. 5/5 strength in all extremities. Deep tendon flexes 2+ throughout. Normal sensation throughout. Gait was not tested. ASSESSMENT: 1. Left-sided Rodriguez's palsy which can cause severe pain due to inflammatory demyelination of left seventh cranial nerve. 2. 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 3. Trigeminal neuralgia is less likely as it has no correlation on association with Rodriguez's palsy. 4. Recent left otitis media and mastoiditis for which the patient was treated with antibiotics at [facility]. The patient has also been seen by ENT. PLAN: 1. Lyrica 100 mg p.o. b.i.d. and we can slowly increase it. She failed gabapentin and amitriptyline. I may retry amitriptyline in the next few days. 2. Tegretol as contingency plan if Lyrica and amitriptyline combination fails. Topamax would likely not help with neuralgic pain, which I think in this case is more likely to be postherpetic neuralgia. 3. Rodriguez's palsy can take 4-8 weeks to improve, sometimes it can take longer. She is already getting better in her left eyelids and forehead. 4. Follow with us in 2-4 weeks after hospital discharge.
[2019-02-16] MEDS ORDERED: PREG100CA PO ×2 (10:38→10:51)
--- NOTE | 2019-02-16 11:17 | REP ---
MAXILLOFACIAL CT WITHOUT CONTRAST: HISTORY: Left ear pain. Minimal mucosal thickening is present in the left ethmoid sinus. The remaining sinuses are clear. The ostiomeatal units are patent. The middle and inferior nasal turbinates are partially paradoxical. There is minimal deviation of the nasal septum to the left. A spur is present arising from the left side of the nasal septum. The spur abuts the left middle nasal turbinate. The cribriform plate, medial roy of the orbits and optic canals are intact. The carotid canals form a segment of the posterolateral roy of the sphenoid sinus. The sphenoid sinus septum inserts into the right internal carotid canal wall. Minimal mucosal thickening is present in the left mastoid air cells. The left middle ear cavity, right middle ear cavity and right mastoid air cells are clear. Artifact from dental amalgam obscures the anterior oropharynx. An abscess in this area cannot be excluded. IMPRESSION: Sinus mucosal thickening as described above. There is extensive metal artifact in the oropharynx. An abscess cannot be excluded. Electronically Signed by Jimy Celestin MD 02/16/2019 12:22 P
[2019-02-16] MEDS ORDERED: diazePAM 2 MG TAB PO ONE (11:45)
[2019-02-16] MEDS ORDERED: LISINOPRIL 10 MG TAB PO ONE (11:45)
[2019-02-16] MEDS ORDERED: FUROSEMIDE 40 MG/4 ML VIAL (J1940) IV ONE (12:00)
[2019-02-16] MEDS: CLINDAMYCIN 600 MG in APPROPRIATE DILUENT 1 EA IV SCH ×2 (12:16→18:53)
[2019-02-16 14:00] VITALS: BP 134/82
--- NOTE | 2019-02-16 17:27 | REP ---
PANOREX VIEW MANDIBLE: A Panorex view of the mandible was performed. Osseous structures appear intact and well aligned. Dental hardware is seen bilaterally. There is no definite radiographic evidence of abscess. Electronically Signed by Omar Freeman MD 02/17/2019 09:33 A
--- NOTE | 2019-02-16 20:39 | IPN ---
DATE: 02/16/2019 Patient seen and examined at the bedside. The patient complains of left temporomandibular joint pain. She is holding on to the left side of her face, complains of neuropathic pain. Last evening, her pain was well controlled on Valium 1 mg as well as Toradol. She had requested to be discharged home yesterday and was started on Lyrica 100 mg twice a day by Neurology who felt that most of her pain was a postherpetic neuralgia and that she may benefit from Lyrica. This morning, the patient says that she was unable to eat her breakfast and her lunch due to severe pain at her temporomandibular joint. She had previously been seen by Ear, Nose and Throat (ENT) who recommended Valium for her. She was encouraged to take this. Due to increasing white count, concern of questionable abscess on the CT, [place]. Chris, [facility] [place]. Patient was initially given IV clindamycin but has since been discontinued since there is no sign of abscess. At this time, the patient is still having a 10 out of 10 pain. This was discussed with her by the neurologist that this neuropathic pain will last most likely for 4-8 weeks. Patient is currently on higher doses of Lyrica, 150 mg twice a day and Valium 1 mg by mouth every 8 hours. Vital Signs: Temperature 98.2, pulse 68, respiratory rate 18, blood pressure 134/82, 96% on room air. Generally, patient is awake, alert, oriented times three, answering questions appropriately. She has no expressive aphasia. Speech is fluent. She continues to have facial asymmetry. Tongue is midline. Lungs are clear to auscultation. No wheezing, rales or rhonchi. Heart: S1, S2, sinus rhythm. Abdomen is soft, nontender, nondistended. Extremities: Have no cyanosis, clubbing or pitting edema. Laboratory data, microbiology, imaging studies have all been reviewed. ASSESSMENT AND PLAN: This is a 69-year-old female treated at [facility] for left acute otitis media, completed 7 days of antibiotics, then complained of facial pain, found to have what appears to be herpetic lesions, subsequently treated for postherpetic neuralgia. Current issues are as follows: 1. Rodriguez's palsy. 2. Postherpetic neuralgia. 3. Left otitis media, resolved with mastoiditis - treated at [facility]. Plan: She is currently on Valium 1 mg every 8 hours, Lyrica 150 mg twice a day. Due to increasing white count and questionable abscess CT, [facility] hCris has been consulted. She has received one dose of clindamycin. Panoramic x-ray shows no abscess formation. Antibiotics have been discontinued. For her temporomandibular joint, she is continued on pain medications.
[2019-02-16] MEDS ORDERED: AMITRIPTYLINE 50 MG TAB PO SCH (21:00)
[2019-02-16 22:00] VITALS: BP 124/84
[2019-02-16] MEDS: PREGABALIN 75 MG CAP(LYRICA) PO SCH (22:57)
[2019-02-16] MEDS: SENNA 8.6 MG TAB (SENOKOT) PO SCH (22:57)
[2019-02-16] MEDS: diazePAM 2 MG TAB PO SCH (22:58)
[2019-02-17] MEDS: diazePAM 2 MG TAB PO SCH ×2 (05:47→12:32)
[2019-02-17] MEDS: LIDOCAINE VISCOUS 2% SOLN 15ML UDC SS PRN (05:48)
[2019-02-17] MEDS: ACETAMINOPHEN TAB 650MG DOSE (2X325MG) PO PRN ×2 (05:48→15:48)
[2019-02-17] MEDS: LEVOTHYROXINE 100MCG TABLET (0.1MG) PO SCH (05:48)
[2019-02-17 06:00] VITALS: BP 130/88
[2019-02-17 06:23] LABS: BASO # 0.1 10^3/uL (0.0-0.2); BASO % 0.9 % (0.0-1.0); EOS # 0.4 10^3/uL (0.0-0.50); EOS % 3.4 % (0.0-3.0); HEMATOCRIT 41.7 % (36.0-47.0); HEMOGLOBIN 14.4 g/dl (12.0-15.5); LYMPH # 2.4 10^3/uL (1.5-4.5); LYMPH % 20.5 % (24.0-44.0); MEAN CORPUSCULAR HEMOGLOBIN 33.3 pg (27.0-33.0); MEAN CORPUSCULAR HGB CONC 34.5 g/dl (32.0-36.5); MEAN CORPUSCULAR VOLUME 96.3 fl (80.0-96.0); MONO # 0.9 10^3/uL (0.0-0.8); MONO % 7.9 % (0.0-5.0); NEUTROPHILS # 7.5 10^3/uL (1.8-7.7); NEUTROPHILS % 64.4 % (36.0-66.0); PLATELET COUNT, AUTOMATED 244 10^3/uL (150-450); RED BLOOD COUNT 4.33 10^6/uL (4.00-5.40); WHITE BLOOD COUNT 11.6 10^3/uL (4.0-10.0)
[2019-02-17 06:42] LABS: BLOOD UREA NITROGEN 13 MG/DL (7-18); CALCIUM LEVEL 8.8 MG/DL (8.8-10.2); CARBON DIOXIDE LEVEL 25 MEQ/L (21-32); CHLORIDE LEVEL 99 MEQ/L (98-107); CREATININE FOR GFR 0.73 MG/DL (0.55-1.30); GLOMERULAR FILTRATION RATE > 60.0 (>39); GLUCOSE, FASTING 73 MG/DL (70-100); SODIUM LEVEL 131 MEQ/L (136-145)
[2019-02-17 06:44] LABS: ERYTHROCYTE SEDIMENTATION RATE 8 mm/hr (0-30)
[2019-02-17] MEDS ORDERED: LYRI75CA PO ×2 (07:37→07:39)
[2019-02-17] MEDS ORDERED: DIAZ2TAB PO (07:37)
[2019-02-17] MEDS ORDERED: AMIT50TA PO (07:37)
[2019-02-17] MEDS ORDERED: diazePAM 2 MG TAB PO PRN (08:00)
[2019-02-17] MEDS: LIDOCAINE 5% OINT 30 GM TOP SCH ×2 (09:00→16:00)
[2019-02-17] MEDS ORDERED: LISINOPRIL 10 MG TAB PO SCH (09:00)
[2019-02-17 10:18] VITALS: BP 130/88
[2019-02-17] MEDS: PREGABALIN 75 MG CAP(LYRICA) PO SCH (10:18)
[2019-02-17] MEDS: PANTOPRAZOLE 40MG TAB (PROTONIX) PO SCH (10:18)
[2019-02-17] MEDS: DOCUSATE SODIUM 100 MG CAP PO SCH ×2 (10:19→15:47)
[2019-02-17 14:00] VITALS: BP 112/63
[2019-02-17] MEDS ORDERED: LIDO2SO SS (15:55)
--- NOTE | 2019-02-19 21:56 | DSES ---
DATE OF ADMISSION: 02/06/2019 DATE OF DISCHARGE: 02/17/2019 CONSULTATIONS: Neurologist, Dr. Dominguez. Pain management, Michael Breen. Ear/Nose/Throat, Dr. Shahzad Hyde. Oral maxillofacial surgeon, Dr. Chris. PRIMARY DISCHARGE DIAGNOSES: 1. Rodriguez's palsy. 2. Postherpetic neuralgia. 3. Left otitis media, resolved with mastoiditis. 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 6. Bite disorder and myofascial dysfunction. DISCHARGE MEDICATIONS: - Lyrica 150 mg twice a day - amitriptyline 50 mg at night - Valium 1 mg by mouth every 6 hours as needed for pain, maximum daily dose of two - Viscous lidocaine 5 mL swish and spit every 6 hours as needed - Synthroid 100 mcg daily - Lisinopril 10 mg daily FOLLOWUP INSTRUCTIONS: Followup with Dr. Dominguez, primary care provider, pain management within 1 week of hospital discharge. HOSPITAL COURSE: This is a 69-year-old female who was recently treated for left otitis media at [facility] with intravenous antibiotics, which has completely healed. 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 The patient was admitted for Valtrex, started on steroids, tried on gabapentin and amitriptyline with no relief. The patient completed her steroids and was given oxycodone, OxyContin, and Toradol without any relief. The patient was then switched over to Lyrica after being seen by neurology who felt that this was mostly postherpetic neuralgia. Brain MRI on admission showed no acute infarct. There is eustachian tube dysfunction versus otitis media or mastoiditis. Repeat maxillofacial CT performed showed sinus mucosal thickening, abscess cannot be excluded. ENT had seen the patient and felt that she had TMJ and recommended for her to be on Valium or dantrolene. Pain management recommended continuation of the Lyrica. Dr. Dominguez recommended increasing the Lyrica to 150 mg twice a day and starting on higher dose of amitriptyline at 50 mg. Due to questionable abscess on the maxillofacial CT and increasing white count, Dr. Chris was consulted to rule out an anterior hypopharynx abscess , which was negative. Panoramic arthrogram was negative. Therefore, the patient was subsequently discharged home once her pain from the TMJ postherpetic neuralgia had resolved. LABORATORIES ON DISCHARGE: White count 11, hemoglobin 14, hematocrit 41, platelet count 244. Sodium 131, potassium 4.0, chloride 99, bicarbonate 25, BUN 13, creatinine 0.73, procalcitonin was 0.03. IMAGING STUDIES: MRI of the brain showed mastoiditis versus acute ear infection, eustachian tube dysfunction. CT maxillofacial cannot exclude anterior oropharyngeal abscess, sinus mucosal thickening. Panoramic arthrogram showed dental hardware but no evidence of abscess. Time spent on discharge 32 minutes.
== END 2019-02-17 16:43 | disposition home health service (06) | DRG 74 ==
LOC: M ED 13:08 → M ED INP 22:10 → M MSPAV 02-07 14:32
PROVIDERS: ADMIT Internal Medicine; ATTEND General Practice
DX: G51.0 Bell's palsy (principal); B02.21 Postherpetic geniculate ganglionitis; H60.92 Unspecified otitis externa, left ear; H70.92 Unspecified mastoiditis, left ear; M79.2 Neuralgia and neuritis, unspecified; M26.609 Unspecified temporomandibular joint disorder, unspecified side; E03.9 Hypothyroidism, unspecified; Z79.899 Other long term (current) drug therapy; Z88.2 Allergy status to sulfonamides; Z88.5 Allergy status to narcotic agent; K59.00 Constipation, unspecified; I10 Essential (primary) hypertension; E78.5 Hyperlipidemia, unspecified